=== PATIENT | female | born 1985 | race Caucasian/White ===

== ENCOUNTER 2018-08-19 07:56 | Emergency (ER) | payer MEDICAID, OTHER ==
[~2018-08-19] VITALS: Ht 160 cm; Wt 81.6 kg
[2018-08-19] MEDS ORDERED: ZOLOFT (08:24)
[2018-08-19 08:28] LABS: BASOPHILS % (AUTO) 0 % (0-10); EOSINOPHILS # (AUTO) 0.1 10^3/uL (0.0-0.3); EOSINOPHILS % (AUTO) 2 % (0-10); HEMATOCRIT 37 % (35-52); HEMOGLOBIN 13.1 G/DL (11.5-16.0); LYMPHOCYTES % (AUTO) 18 % (12-44); MEAN CORPUSCULAR HEMOGLOBIN 31 PG (25-34); MEAN CORPUSCULAR HGB CONC 36 G/DL (32-36); MEAN CORPUSCULAR VOLUME 87 FL (80-99); MONOCYTES # (AUTO) 0.3 X 10^3 (0.0-1.0); MONOCYTES % (AUTO) 6 % (0-12); NEUTROPHILS # (AUTO) 3.9 X 10^3 (1.8-7.8); NEUTROPHILS % (AUTO) 74 % (42-75); PLATELET COUNT 172 10^3/uL (130-400); RED CELL DISTRIBUTION WIDTH 12.5 % (10.0-14.5); WHITE BLOOD COUNT 5.2 10^3/uL (4.3-11.0)
--- NOTE | 2018-08-19 08:29 | ED GU-Female ---
General Chief Complaint: MANAGER OF GLOBAL Stated Complaint: 8 WKS PREG. - VAG BLEEDING Nursing Triage Note: AMB TO ROOM REPORTS IS APX 8 WEEKS PREG. LAST NIGHT ONSET OF SPOTTING AND CRAMPING. TODAY PASSED SOME CLOTS. Nursing Sepsis Screen: No Definite Risk Source: patient Exam Limitations: no limitations History of Present Illness Date Seen by Provider: Aug 19, 2018 Time Seen by Provider: 08:03 Initial Comments Here with report of vaginal bleeding. Started with some spotting last night and today had a couple small clots. Also notes some low abdominal cramping like she is having her menstrual cycle. Last sexual activity a few weeks ago. Denies other pain or discharge. For with one previous ectopic and 2 live births. Timing/Duration: yesterday Severity/Quality: mild, cramping Location: suprapubic Radiation: none Activities at Onset: none Sexual [place] History: less than 2 months ago Associated Symptoms: abdominal pain; No dysuria, No fever/chills, No lower back pain, No nausea/vomiting, No urinary frequency Allergies and Home Medications Allergies Coded Allergies: acetaminophen (Verified Allergy, Unknown, 08/19/18) hydrocodone (Verified Allergy, Unknown, 08/19/18) latex (Verified Allergy, Unknown, 08/19/18) morphine (Verified Allergy, Unknown, 08/19/18) Patient Home Medication List Home Medication List Reviewed: Yes Review of Systems Review of Systems Constitutional: see HPI; No chills, No fever Respiratory: no symptoms reported Cardiovascular: no symptoms reported Gastrointestinal: see HPI Genitourinary: see HPI : Yes Musculoskeletal: no symptoms reported Past Yhdatjc-Sxvskj-Lyisii Hx Past Med/Social Hx: Reviewed Nursing Past Med/Soc Hx Patient Social History Alcohol Use: Denies Use Recreational Drug Use: No Smoking Status: Never a Smoker Recent Foreign Travel: No Contact w/Someone Who Travel: No Recent Infectious Disease Expo: No Past Medical History Surgeries: Yes (etopic preg) Section Respiratory: No Cardiac: No Neurological: No Genitourinary: No Gastrointestinal: No Musculoskeletal: No Endocrine: No HEENT: No Cancer: No Psychosocial: Yes Depression Family Medical History Reviewed Nursing Family Hx No Pertinent Family Hx Physical Exam Vital Signs Vital Signs - First Documented 08/19/18 08:16 Temp 98.8 Pulse 90 Resp 18 B/P (MAP) 137/89 (105) Pulse Ox 99 O2 Delivery Room Air Capillary Refill : Less Than 3 Seconds Height, Weight, BMI Height: 5'3.00" Weight: 180lbs. oz. 81.656088tf; BMI Method:Stated General Appearance: WD/WN, no apparent distress Cardiovascular: regular rate, rhythm, no murmur Respiratory: lungs clear, normal breath sounds Gastrointestinal: non tender, soft Extremities: normal range of motion, non-tender, normal inspection Neurologic/Psychiatric: alert, oriented x 3 Skin: normal color, warm/dry Progress/Results/Core Measures Suspected Sepsis Recent Fever Within 48 Hours: No Infection Criteria Present: None New/Unexplained Altered Menta: No Sepsis Screen: No Definite Risk SIRS Temperature:98.8 Pulse: 90 Respiratory Rate: 18 Laboratory Tests 08/19/18 08:20: White Blood Count 5.2 Blood Pressure 137 /89 Mean: 105 Laboratory Tests 08/19/18 08:20: Platelet Count 172 Results/Orders Lab Results Laboratory Tests Test 08/19/18 08:20 Range/Units White Blood Count 5.2 4.3-11.0 10^3/uL Red Blood Count 4.23 L 4.35-5.85 10^6/uL Hemoglobin 13.1 11.5-16.0 G/DL Hematocrit 37 35-52 % Mean Corpuscular Volume 87 80-99 FL Mean Corpuscular Hemoglobin 31 25-34 PG Mean Corpuscular Hemoglobin Concent 36 32-36 G/DL Red Cell Distribution Width 12.5 10.0-14.5 % Platelet Count 172 130-400 10^3/uL Mean Platelet Volume 11.0 H 7.4-10.4 FL Neutrophils (%) (Auto) 74 42-75 % Lymphocytes (%) (Auto) 18 12-44 % Monocytes (%) (Auto) 6 0-12 % Eosinophils (%) (Auto) 2 0-10 % Basophils (%) (Auto) 0 0-10 % Neutrophils # (Auto) 3.9 1.8-7.8 X 10^3 Lymphocytes # (Auto) 1.0 1.0-4.0 X 10^3 Monocytes # (Auto) 0.3 0.0-1.0 X 10^3 Eosinophils # (Auto) 0.1 0.0-0.3 10^3/uL Basophils # (Auto) 0.0 0.0-0.1 10^3/uL Human Chorionic Gonadotropin, Quant 72063 H <5 MIU/ML My Orders Orders - AMANUEL VANESSA MD Cbc With Automated Diff (08/19/18 08:11) Hcg,Quantitative (08/19/18 08:11) Abo Rh Type (08/19/18 08:11) Vital Signs/I&O 08/19/18 08:16 Temp 98.8 Pulse 90 Resp 18 B/P (MAP) 137/89 (105) Pulse Ox 99 O2 Delivery Room Air Capillary Refill : Less Than 3 Seconds Blood Pressure Mean: 105 Progress Note : Progress Note Seen and evaluated. Labs ordered. Bedside ultrasound performed and uterus was visualized but no obvious pole or sac noted. We will wait for lab results. We have requested records from [facility]. 1030: Sonogram results from [place] shows single intrauterine gestation with gestational sac measuring 8.5 mm. No pole was identified. No cardiac activity is seen. No hypervascular adrenal masses seen. Both ovaries were noted. Intrauterine gestation sac at 5 weeks and 5 days reported. There was no beta hCG on that visit. HCG results noted for this visit. Patient is O+ and does not require milligram. She normally sees Dr. Holley. I will send a copy of the records to her and patient will call her office tomorrow for repeat Quant and ultrasound to evaluate . Discharged home with return precautions. Patient verbalize understanding instructions and agreement with plan. Departure Impression Primary Impression: Threatened miscarriage in early Disposition: 01 HOME, SELF-CARE Condition: Stable Departure-Patient Inst. Decision time for Depature: 10:32 Referrals: Lauren LIMA DO (PCP/Family) Primary Care Physician Patient Instructions: Threatened Miscarriage (DC) Add. Discharge Instructions: All discharge instructions reviewed with patient and/or family. Voiced understanding. Call Dr. Kerr's office in the morning for repeat appointment and for ultrasound to evaluate as indicated. Return for worse pain, bleeding greater than 2 pads per hour for more than 2 hours, weakness, fever or other concerns as needed. Pelvic rest until cleared by your food beverage attendant. Drink plenty of fluids. He may take Tylenol/acetaminophen 1000 mg every 6 hours as needed for pain. Work/School Note: Work Release Form Date Seen in the Emergency Department: Aug 19, 2018 Return to Work: Aug 21, 2018 Restrictions: No Restrictions Copy Copies To 1: LISSETH HOLLEY TIMOTHY D MD Aug 19, 2018 08:29
--- NOTE | 2018-08-19 09:25 | NUR ---
RELEASE OF INFORMATION SENT TO [facility]
[2018-08-19 10:43] VITALS: BP 122/78
== END 2018-08-19 10:42 | disposition home or self-care (01) ==
LOC: ER 08:00
DX: O20.0 Threatened abortion (principal); O99.341 Other mental disorders complicating pregnancy, first trimester; F32.9 Major depressive disorder, single episode, unspecified; Z3A.08 8 weeks gestation of pregnancy; Z88.5 Allergy status to narcotic agent; Z91.040 Latex allergy status; Z88.8 Allergy status to other drugs, medicaments and biological substances; Z98.890 Other specified postprocedural states
CPT/HCPCS: 36415; 84702; 85025; 86900; 86901; 99282